=== PATIENT | female | born 1950 | race Caucasian/White ===

== ENCOUNTER 2017-07-07 17:32 | Inpatient (IN) | payer MEDICARE, OTHER ==
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
[2017-07-07] MEDS ORDERED: Ondansetron 4 MG/2 ML SDV IVPUSH ONE (18:17)
[2017-07-07] MEDS ORDERED: Sodium Chloride 0.9% 1,000 ML IV SCH ×2 (18:30→20:07)
[2017-07-07] MEDS ORDERED: Potassium Chloride 20 MEQ in Premix Bag 1 BAG IV ONE (18:39)
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
[2017-07-07] MEDS ORDERED: Ondansetron 4 MG/2 ML SDV IV PRN (20:07)
[2017-07-07] MEDS ORDERED: Sodium Chloride 0.9% 10 ML Syringe FLUSH PRN (20:07)
[2017-07-07] MEDS ORDERED: Morphine 2 MG/ML Syringe IVPUSH PRN (20:07)
[2017-07-07] MEDS ORDERED: Sodium Chloride 0.9% 100 ML with Pantoprazole 80 MG IV SCH ×2 (20:07)
[2017-07-07] MEDS ORDERED: Pantoprazole 40 MG Vial IVPUSH ONE (20:07)
[2017-07-07] MEDS: Pantoprazole 80 MG in Sodium Chloride 0.9% 100 ML IV SCH (21:26)
[2017-07-08] MEDS ORDERED: Sodium Chloride 0.9% 1,000 ML IV SCH (01:15)
[2017-07-08] MEDS: Pantoprazole 80 MG in Sodium Chloride 0.9% 100 ML IV SCH (06:02)
[2017-07-08] MEDS ORDERED: Propofol 200 MG/20 ML SDV ONE (08:59)
[2017-07-08] MEDS ORDERED: fentaNYL 100 MCG/2 ML SDV ONE (08:59)
[2017-07-08] MEDS ORDERED: Levothyroxine 50 MCG Tab PO SCH (09:00)
[2017-07-08] MEDS: Levothyroxine 50 MCG Tab PO SCH (10:37)
[2017-07-08] MEDS: Acetaminophen 325 MG Tab PO PRN ×2 (10:37→21:01)
--- NOTE | 2017-07-08 11:00 | PCM.PN ---
- General Info Date of Service: 07/08/17 Subjective Update: Monisha has been stable since admission, hemoglobin has remained in the range of 9 following hydration with no further evidence of active bleeding. EGD from this morning did show an area of redundant mucosa in the region of the junction with some erosions, old blood within the stomach, as well as some erosions in the antrum. Functional Status: Reports: Pain Controlled, Urinating - Review of Systems General: Reports: Weakness. Denies: Fever, Chills Pulmonary: Reports: No Symptoms Cardiovascular: Reports: No Symptoms Gastrointestinal: Denies: Abdominal Pain, Difficulty Swallowing, Hematochezia, Melena, Nausea, Vomiting - Patient Data Vitals - Most Recent: Last Vital Signs Temp 97.8 F 07/08/17 10:07 Pulse 68 07/08/17 10:48 Resp 18 07/08/17 10:48 BP 106/60 07/08/17 10:48 Pulse Ox 98 07/08/17 10:48 Weight - Most Recent: 173 lb 11.588 oz I&O - Last 24 Hours: Intake & Output 07/07/17 07/08/17 07/08/17 22:59 06:59 14:59 Intake Total 1174 Output Total 950 700 450 Balance -950 474 -450 Lab Results Last 24 Hours: Laboratory Results - last 24 hr 07/07/17 07/07/17 07/08/17 Range/Units 20:01 20:55 01:00 WBC (4.5-11.0) K/uL RBC (3.30-5.50) M/uL Hgb 9.4 L 8.7 L (12.0-15.0) g/dL Hct (36.0-48.0) % MCV (80-98) fL MCH (27-31) pg MCHC (32-36) % Plt Count (150-400) K/uL Neut % (Auto) (36-66) % Lymph % (Auto) (24-44) % [place] % (Auto) (2-6) % Eos % (Auto) (2-4) % Baso % (Auto) (0-1) % Sodium (140-148) mmol/L Potassium (3.6-5.2) mmol/L Chloride (100-108) mmol/L Carbon Dioxide (21-32) mmol/L Anion Gap (5.0-14.0) mmol/L BUN (7-18) mg/dL Creatinine (0.6-1.0) mg/dL Est Cr Clr Drug Dosing mL/min Estimated GFR (MDRD) (>60) Glucose (74-106) mg/dL Calcium (8.5-10.1) mg/dL Magnesium (1.8-2.4) mg/dL Urine Color Yellow Urine Appearance Clear Urine pH 6.5 (4.5-8.0) Ur Specific [place] 1.015 (1.008-1.030) Urine Protein Negative (NEGATIVE) mg/dL Urine Glucose (UA) Normal (NEGATIVE) mg/dL Urine Ketones 15 H (NEGATIVE) mg/dL Urine Occult Blood Negative (NEGATIVE) Urine Nitrite Negative (NEGATIVE) Urine Bilirubin Negative (NEGATIVE) Urine Urobilinogen Normal (NORMAL) mg/dL Ur Leukocyte Esterase Moderate (NEGATIVE) Urine RBC 0-5 (0-5) Urine WBC 0-5 (0-5) Ur Epithelial Cells Few Amorphous Sediment Not seen Urine Bacteria Not seen Urine Mucus Not seen 07/08/17 07/08/17 Range/Units 05:28 05:28 WBC 13.8 H (4.5-11.0) K/uL RBC 3.05 L (3.30-5.50) M/uL Hgb 9.4 L (12.0-15.0) g/dL Hct 28.5 L (36.0-48.0) % MCV 93 (80-98) fL MCH 31 (27-31) pg MCHC 33 (32-36) % Plt Count 329 (150-400) K/uL Neut % (Auto) 68 H (36-66) % Lymph % (Auto) 28 (24-44) % Drew % (Auto) 4 (2-6) % Eos % (Auto) 0 L (2-4) % Baso % (Auto) 0 (0-1) % Sodium 145 (140-148) mmol/L Potassium 3.8 (3.6-5.2) mmol/L Chloride 113 H (100-108) mmol/L Carbon Dioxide 23 (21-32) mmol/L Anion Gap 12.8 (5.0-14.0) mmol/L BUN 33 H (7-18) mg/dL Creatinine 0.8 (0.6-1.0) mg/dL Est Cr Clr Drug Dosing 53.23 mL/min Estimated GFR (MDRD) > 60 (>60) Glucose 92 (74-106) mg/dL Calcium 8.2 L (8.5-10.1) mg/dL Magnesium 1.8 (1.8-2.4) mg/dL Urine Color Urine Appearance Urine pH (4.5-8.0) Ur Specific [place] (1.008-1.030) Urine Protein (NEGATIVE) mg/dL Urine Glucose (UA) (NEGATIVE) mg/dL Urine Ketones (NEGATIVE) mg/dL Urine Occult Blood (NEGATIVE) Urine Nitrite (NEGATIVE) Urine Bilirubin (NEGATIVE) Urine Urobilinogen (NORMAL) mg/dL Ur Leukocyte Esterase (NEGATIVE) Urine RBC (0-5) Urine WBC (0-5) Ur Epithelial Cells Amorphous Sediment Urine Bacteria Urine Mucus Med Orders - Current: Current Medications Acetaminophen (Tylenol) 650 mg PO Q4H PRN PRN Reason: Pain (Mild 1-3)/fever Last Admin: 07/08/17 10:37 Dose: 650 mg Levothyroxine Sodium (Synthroid) 50 mcg PO ACBREAKFAST [facility] Last Admin: 07/08/17 10:37 Dose: 50 mcg Morphine Sulfate (Morphine) 2 mg IVPUSH Q2H PRN PRN Reason: Pain (severe 7-10) Ondansetron HCl (Zofran) 4 mg IV Q4H PRN PRN Reason: Nausea/Vomiting Pantoprazole Sodium (Protonix Iv) 40 mg IVPUSH Q12H [facility] Sodium Chloride (Saline Flush) 10 ml FLUSH ASDIRECTED PRN PRN Reason: Keep Vein Open Discontinued Medications Fentanyl (Sublimaze) Confirm Administered Dose 100 mcg .ROUTE .STK-MED ONE Stop: 07/08/17 09:00 Sodium Chloride (Normal Saline) 1,000 mls @ 999 mls/hr IV ASDIRECTED [facility] Last Admin: 07/07/17 18:21 Dose: 999 mls/hr Potassium Chloride 20 meq/ (Premix) 100 mls @ 50 mls/hr IV ONETIME ONE Stop: 07/07/17 20:38 Last Admin: 07/07/17 19:12 Dose: 50 mls/hr Sodium Chloride (Normal Saline) 1,000 mls @ 125 mls/hr IV ASDIRECTED [facility] Last Admin: 07/07/17 22:15 Dose: 125 mls/hr Pantoprazole Sodium 80 mg/ (Sodium Chloride) 100 mls @ 10 mls/hr IV ASDIRECTED [facility] Last Admin: 07/08/17 06:02 Dose: 10 mls/hr Sodium Chloride (Normal Saline) 1,000 mls @ 50 mls/hr IV ASDIRECTED [facility] Last Admin: 07/08/17 09:49 Dose: 50 mls/hr Lidocaine HCl (Xylocaine-Mpf 1%) Confirm Administered Dose 5 ml .ROUTE .STK-MED ONE Stop: 07/07/17 19:07 Last Admin: 07/07/17 19:13 Dose: 2 ml Ondansetron HCl (Zofran) 4 mg IVPUSH ONETIME ONE Stop: 07/07/17 18:18 Last Admin: 07/07/17 18:24 Dose: 4 mg Pantoprazole Sodium (Protonix Iv) 80 mg IVPUSH ONETIME ONE Stop: 07/07/17 20:08 Last Admin: 07/07/17 20:54 Dose: 80 mg Propofol (Diprivan 20 Ml) Confirm Administered Dose 200 mg .ROUTE .STK-MED ONE Stop: 07/08/17 09:00 - Exam Quality Assessment: DVT Prophylaxis General: Alert, Oriented, Cooperative, Mild Distress Lungs: Clear to Auscultation, Normal Respiratory Effort Cardiovascular: Regular Rate, Regular Rhythm, No Murmurs GI/Abdominal Exam: Soft, Non-Tender, No Organomegaly, No Distention Extremities: Non-Tender, No Pedal Edema Skin: Warm, Dry, Intact - Problem List Review Problem List Initiated/Reviewed/Updated: Yes - My Orders Last 24 Hours: My Active Orders 07/07/17 19:26 Resuscitation Status Routine 07/07/17 20:07 Patient Status [ADT] Routine Ambulate [RC] QID Cardiac Monitoring [RC] .As Directed Height and Weight [RC] DAILY Intake and Output [RC] QSHIFT Notify Provider Consults [RC] ASDIRECTED Notify Provider Vital Signs [RC] ASDIRECTED Oxygen Therapy [RC] PRN Peripheral IV Care [RC] . DIRECTED Up With Assistance [RC] ASDIRECTED Up to Chair [RC] QID Vital Signs [RC] Q1H Consult to Physician [CONS] Routine Acetaminophen [Tylenol] 650 mg PO Q4H PRN Morphine 2 mg IVPUSH Q2H PRN Ondansetron [Zofran] 4 mg IV Q4H PRN Sodium Chloride 0.9% [Saline Flush] 10 ml FLUSH ASDIRECTED PRN Peripheral IV Insertion Adult [OM.PC] Routine Sequential Compression Device [OM.PC] Per Unit Routine VTE Pharmacological Contraindications [AST] Per Unit Routine 07/08/17 07:30 Levothyroxine [Synthroid] 50 mcg PO ACBREAKFAST 07/08/17 10:50 HEMOGLOBIN [HEME] Stat Convert IV to Saline Lock [OM.PC] Routine 07/08/17 11:00 Pantoprazole [ProTONIX IV] 40 mg IVPUSH Q12H 07/09/17 05:00 BASIC METABOLIC PANEL,BMP [CHEM] Timed CBC WITH AUTO DIFF [HEME] Timed - Plan Plan:: ASSESSMENT AND PLAN UPPER GI BLEED-no further evidence of active bleeding since admission, hemoglobin has stabilized at 9. EGD showed redundant mucosa almost in the form of a large polyp at the EG junction with erosions, old blood in the stomach, and erosions in the antrum. -Protonix 40 mg IV every 12 hours -Start and maintain 2 large-bore IV sites -Clear liquid diet, advance as tolerated -Type and cross to hold 2 units of red blood cells -Surgical follow-up per Dr. Vogel -Serial hemoglobin levels ACUTE BLOOD LOSS ANEMIA -Management as above MAINTENANCE ISSUES -DVT prophylaxis; SCUDs, hold on anticoagulation because of acute GI bleed -GI prophylaxis; Protonix as above -Abernathy catheter; not indicated -Nutrition; nothing by mouth -Nicotine dependence; not required CODE STATUS-FULL CODE ADMISSION STATUS-patient will be admitted to inpatient status, expect at least a 2 night hospital stay for evaluation and management of problems as outlined above. At the time of this admission I do not reasonably expected evaluation and management of this problem will require more than a 96 hour hospital stay. DISPOSITION-anticipate discharge to home after the hospital stay. PRIMARY CARE PROVIDER-
[2017-07-08] MEDS: Pantoprazole 40 MG Vial IVPUSH SCH ×2 (11:39→22:49)
[2017-07-08] MEDS ORDERED: traMADol 50 MG Tab PO PRN (13:35)
[2017-07-09] MEDS: Acetaminophen 325 MG Tab PO PRN (07:21)
[2017-07-09] MEDS: Levothyroxine 50 MCG Tab PO SCH (07:34)
--- NOTE | 2017-07-09 09:38 | PCM.DCSUM1 ---
Discharge Summary - Discharge Data Discharge Date: 07/09/17 Discharge Disposition: Home, Self-Care 01 Condition: Fair - Discharge Diagnosis/Problem(s) (1) Acute blood loss anemia SNOMED Code(s): 687468983 ICD Code: D62 - ACUTE POSTHEMORRHAGIC ANEMIA Status: Acute Current Visit : Yes (2) Gastric erosion with bleeding Status: Acute Current Visit: Yes - Patient Summary/Data Consults: Consultations 07/07/17 20:07 Consult to Physician [CONS] Routine Consulting Provider: Matthew Vogel Call Completed to Consulting Physician: Yes Reason for Consult: Upper GI bleed Hospital Course: Monisha is a 66-year-old woman who was admitted through the emergency department with an upper GI bleed. She reports that she's had a previous history of lower GI bleeds, source not identified despite previous evaluations. She felt well until the morning of admission, when she noted a melenic-appearing stool, but felt well enough to work through the day. Late afternoon and early evening she was spending some time with friends and attempted to stand up but felt very lightheaded and fell back onto the couch. She did not pass out, but quickly thereafter did develop some nausea and retching. She is status post previous Berenice fundoplication so was unable to vomit. On evaluation in the emergency department she was found to be initially hypotensive, that improved following infusion of IV fluids. Hemoglobin was 10, no other significant laboratory abnormalities were identified. She denies any previous history of upper GI bleed or ulcer disease. Has not had recent symptoms of abdominal pain. On admission IV fluids were continued, she was given a bolus of Protonix at 80 mg followed by continuous infusion of Protonix at 8 mg per hour. Serial hemoglobin levels were obtained and did drop to the range of 9 following hydration. There was no further evidence of active bleeding throughout her hospital stay. Surgical consult was obtained with Dr. Vogel on the day after admission and an EGD was performed. She was noted to have redundant mucosa almost in the form of a large polyp at the EG junction. There were erosions on this area felt to be possible cause of recent bleeding. Old blood was noted in the stomach. Also found was very of erosions around the antrum biopsies were also obtained from this area. By the following morning she had been tolerating a soft diet and had been walking short distances without significant difficulty. She will be discharged home on oral Protonix 40 mg twice daily for 2 weeks, then once daily thereafter. She will continue to follow a soft low residue diet over the next 2 weeks. Activity will be as tolerated and she will be started on iron supplement twice daily. Follow-up appointment will be scheduled with Dr. Vogel within one week, CBC will be obtained at that time and he will review biopsy results with the patient during that appointment. She will return to the emergency room immediately if she notes any recurrent symptoms including melenic-appearing stools. - Patient Instructions Diet: GI Soft/Low Residue/Low Fiber Activity: As Tolerated Other/Special Instructions: Please schedule follow-up appointment with Dr. Vogel within one week, CBC to be obtained at the time of follow-up appointment. - Discharge Plan Prescriptions/Med Rec: Ferrous Gluconate 324 mg PO BID #60 tablet Pantoprazole Sodium [Protonix] 40 mg PO BID #30 tablet. Home Medications: Home Meds Dicyclomine [Bentyl] 10 mg PO TID PRN 10/28/15 [History] Fluticasone Propionate [Flonase] 1 inh INH DAILY PRN 10/28/15 [History] Hydrochlorothiazide 25 mg PO BID 10/28/15 [History] Hydrocortisone [Hydrocortisone 2.5% Crm] 1 applic TOP BID PRN 10/28/15 [History] Levothyroxine [Synthroid] 50 mcg PO DAILY 10/28/15 [History] Ferrous Gluconate 324 mg PO BID #60 tablet 07/09/17 [Rx] Pantoprazole Sodium [Protonix] 40 mg PO BID #30 tablet. 07/09/17 [Rx] Referrals: PCP,None [Primary Care Provider] - - Patient Data Vitals - Most Recent: Last Vital Signs Temp 98.6 F 07/09/17 08:00 Pulse 71 07/09/17 08:00 Resp 21 H 07/09/17 08:00 BP 101/63 07/09/17 08:00 Pulse Ox 93 L 07/09/17 08:00 Weight - Most Recent: 173 lb 11.588 oz I&O - Last 24 hours: Intake & Output 07/08/17 07/09/17 07/09/17 22:59 06:59 14:59 Intake Total 200 Output Total 500 Balance -300 Lab Results - Last 24 hrs: Laboratory Results - last 24 hr 07/08/17 07/08/17 07/08/17 Range/Units 11:00 16:16 22:08 WBC 9.2 10.0 (4.5-11.0) K/uL RBC 2.75 L 2.62 L (3.30-5.50) M/uL Hgb 8.8 L 8.4 L 8.1 L (12.0-15.0) g/dL Hct 26.2 L 25.2 L (36.0-48.0) % MCV 95 96 (80-98) fL MCH 31 31 (27-31) pg MCHC 32 32 (32-36) % Plt Count 300 269 (150-400) K/uL Neut % (Auto) (36-66) % Lymph % (Auto) (24-44) % [place] % (Auto) (2-6) % Eos % (Auto) (2-4) % Baso % (Auto) (0-1) % Sodium (140-148) mmol/L Potassium (3.6-5.2) mmol/L Chloride (100-108) mmol/L Carbon Dioxide (21-32) mmol/L Anion Gap (5.0-14.0) mmol/L BUN (7-18) mg/dL Creatinine (0.6-1.0) mg/dL Est Cr Clr Drug Dosing mL/min Estimated GFR (MDRD) (>60) Glucose (74-106) mg/dL Calcium (8.5-10.1) mg/dL 07/09/17 07/09/17 Range/Units 05:53 05:53 WBC 8.5 (4.5-11.0) K/uL RBC 2.77 L (3.30-5.50) M/uL Hgb 8.6 L (12.0-15.0) g/dL Hct 26.7 L (36.0-48.0) % MCV 96 (80-98) fL MCH 31 (27-31) pg MCHC 32 (32-36) % Plt Count 278 (150-400) K/uL Neut % (Auto) 50 (36-66) % Lymph % (Auto) 41 (24-44) % [place] % (Auto) 4 (2-6) % Eos % (Auto) 5 H (2-4) % Baso % (Auto) 1 (0-1) % Sodium 145 (140-148) mmol/L Potassium 4.3 (3.6-5.2) mmol/L Chloride 114 H (100-108) mmol/L Carbon Dioxide 25 (21-32) mmol/L Anion Gap 10.3 (5.0-14.0) mmol/L BUN 20 H (7-18) mg/dL Creatinine 0.8 (0.6-1.0) mg/dL Est Cr Clr Drug Dosing 53.23 mL/min Estimated GFR (MDRD) > 60 (>60) Glucose 101 (74-106) mg/dL Calcium 8.3 L (8.5-10.1) mg/dL Med Orders - Current: Current Medications Acetaminophen (Tylenol) 650 mg PO Q4H PRN PRN Reason: Pain (Mild 1-3)/fever Last Admin: 07/09/17 07:21 Dose: 650 mg Levothyroxine Sodium (Synthroid) 50 mcg PO ACBREAKFAST [facility] Last Admin: 07/09/17 07:34 Dose: 50 mcg Morphine Sulfate (Morphine) 2 mg IVPUSH Q2H PRN PRN Reason: Pain (severe 7-10) Ondansetron HCl (Zofran) 4 mg IV Q4H PRN PRN Reason: Nausea/Vomiting Pantoprazole Sodium (Protonix Iv) 40 mg IVPUSH Q12H [facility] Last Admin: 07/08/17 22:49 Dose: 40 mg Sodium Chloride (Saline Flush) 10 ml FLUSH ASDIRECTED PRN PRN Reason: Keep Vein Open Tramadol HCl (Ultram) 50 mg PO Q4H PRN PRN Reason: Pain Discontinued Medications Fentanyl (Sublimaze) Confirm Administered Dose 100 mcg .ROUTE .STK-MED ONE Stop: 07/08/17 09:00 Sodium Chloride (Normal Saline) 1,000 mls @ 999 mls/hr IV ASDIRECTED [facility] Last Admin: 07/07/17 18:21 Dose: 999 mls/hr Potassium Chloride 20 meq/ (Premix) 100 mls @ 50 mls/hr IV ONETIME ONE Stop: 07/07/17 20:38 Last Admin: 07/07/17 19:12 Dose: 50 mls/hr Sodium Chloride (Normal Saline) 1,000 mls @ 125 mls/hr IV ASDIRECTED [facility] Last Admin: 07/07/17 22:15 Dose: 125 mls/hr Pantoprazole Sodium 80 mg/ (Sodium Chloride) 100 mls @ 10 mls/hr IV ASDIRECTED [facility] Last Admin: 07/08/17 06:02 Dose: 10 mls/hr Sodium Chloride (Normal Saline) 1,000 mls @ 50 mls/hr IV ASDIRECTED [facility] Last Admin: 07/08/17 09:49 Dose: 50 mls/hr Lidocaine HCl (Xylocaine-Mpf 1%) Confirm Administered Dose 5 ml .ROUTE .STK-MED ONE Stop: 07/07/17 19:07 Last Admin: 07/07/17 19:13 Dose: 2 ml Ondansetron HCl (Zofran) 4 mg IVPUSH ONETIME ONE Stop: 07/07/17 18:18 Last Admin: 07/07/17 18:24 Dose: 4 mg Pantoprazole Sodium (Protonix Iv) 80 mg IVPUSH ONETIME ONE Stop: 07/07/17 20:08 Last Admin: 07/07/17 20:54 Dose: 80 mg Propofol (Diprivan 20 Ml) Confirm Administered Dose 200 mg .ROUTE .STK-MED ONE Stop: 07/08/17 09:00 *Q Meaningful Use (DIS) - VTE *Q VTE Criteria *Q: VTE Pharmacological Contraindications *Q: Active Hemorrhage - Stroke *Q Stroke Criteria *Q: - AMI *Q AMI Criteria *Q:
--- NOTE | 2017-07-10 09:19 | OR ---
DATE OF PROCEDURE: 07/08/2017 PREOPERATIVE DIAGNOSIS: Gastrointestinal hemorrhage. POSTOPERATIVE DIAGNOSES: 1. Proximal stomach mass. 2. Gastrointestinal hemorrhage. 3. Mild antral gastritis. PROCEDURE: Esophagogastroduodenoscopy with biopsy of proximal gastric mass, biopsy of antrum for CLOtest and for pathology to look for Helicobacter pylori. SURGEON: Matthew Vogel MD. ASSISTANTS: Present for observation, Dr. Whiteside, the attending; and Francis Cazares MS-3. ANESTHESIA: IV anesthesia with monitored anesthesia care. INDICATION: This 66-year-old white female was admitted by Dr. Whiteside last night after having melenic stools. Her hemoglobin fell as low as 8.7. She did receive blood transfusion. She has a history of Berenice fundoplication. A request was made for upper endoscopy. I counseled her for this and she gave her informed consent to proceed. DESCRIPTION OF PROCEDURE: The patient was placed in the left lateral decubitus position. IV anesthesia was administered by the Anesthesia Service. Time-out was held. The flexible video Olympus upper endoscope was passed through her mouth, down her esophagus, and into her stomach. The scope was easily passed through the pylorus into the duodenum , reaching its third portion. The scope was then slowly withdrawn, examining the mucosa throughout. The duodenal mucosa appeared unremarkable. The scope was brought up through the pylorus. There was some erythema in the antrum suggestive of mild antral gastritis. We obtained biopsies of this for CLOtest, sent for pathology to look for Helicobacter pylori. The scope was retroflexed, the proximal stomach showing a pedunculated mass, possibly a gastrointestinal stromal tumor. We did biopsy this mass. There was nothing actively bleeding at the present time. The scope was then brought up to the GE junction. This appeared unremarkable. It was then brought up through the unremarkable appearing esophagus and was removed. She tolerated the procedure well. Matthew Vogel MD /[id number] MTDD
== END 2017-07-09 11:13 | disposition home or self-care (01) | DRG 378 ==
LOC: JP.ED 17:32 → JP.ICU 19:24
PROVIDERS: ADMIT Hospitalist; ATTEND Hospitalist
PROC: 30233K1 Transfusion of Nonautologous Frozen Plasma into Peripheral Vein, Percutaneous Approach (ICD-10-PCS; principal; 2017-07-07)
PROC: 0DB68ZX Excision of Stomach, Via Natural or Artificial Opening Endoscopic, Diagnostic (ICD-10-PCS; 2017-07-08)
PROC: 0DB68ZX Excision of Stomach, Via Natural or Artificial Opening Endoscopic, Diagnostic (ICD-10-PCS; 2017-07-08)
DX: K92.2 Gastrointestinal hemorrhage, unspecified (principal); K25.4 Chronic or unspecified gastric ulcer with hemorrhage; D62 Acute posthemorrhagic anemia; R55 Syncope and collapse; R42 Dizziness and giddiness; R61 Generalized hyperhidrosis; I10 Essential (primary) hypertension; E03.9 Hypothyroidism, unspecified; K21.9 Gastro-esophageal reflux disease without esophagitis; J30.9 Allergic rhinitis, unspecified; Z88.8 Allergy status to other drugs, medicaments and biological substances
CPT/HCPCS: 36415; 36430; 80048; 80053; 81001; 82272; 82550; 83735; 84484; 85018; 85025; 85027; 86850; 86900; 86901; 86920; 86922; 87081; 87338; 93005; 96361; 96374; 99284-25; A9270-GY; C9113; J2405; J2704; J3010; J3480; J7030; J7040; P9017

== ENCOUNTER 2017-07-14 07:30 | Inpatient (IN) | payer MEDICARE, OTHER ==
[~2017-07-14 07:30] MED LIST: cefOXitin 2 GM Vial ONE
[2017-07-14] MEDS ORDERED: Acetaminophen 500 MG Tab PO ONE (09:30)
[2017-07-14] MEDS ORDERED: Gabapentin 300 MG Cap PO ONE (09:30)
[2017-07-14] MEDS ORDERED: Scopolamine 1.5 MG Transdermal Patch TOP SCH (09:30)
[2017-07-14] MEDS ORDERED: Celecoxib 200 MG Cap PO ONE (09:30)
[2017-07-14] MEDS ORDERED: cefOXitin 2 GM in Sodium Chloride 0.9% 50 ML IV ONE (10:00)
[2017-07-14] MEDS ORDERED: Dextrose 5%-Lactated Ringers 1,000 ML IV SCH (11:00)
[2017-07-14] MEDS ORDERED: fentaNYL 250 MCG/5 ML SDV ONE (11:56)
[2017-07-14] MEDS ORDERED: Propofol 200 MG/20 ML SDV ONE (11:57)
[2017-07-14] MEDS ORDERED: Ondansetron 4 MG/2 ML SDV ONE (11:57)
[2017-07-14] MEDS ORDERED: Neostigmine Methylsulfate 1 MG/ML 5 ML Syringe ONE (11:57)
[2017-07-14] MEDS ORDERED: Rocuronium 50 MG/5 ML Vial ONE (11:57)
[2017-07-14] MEDS ORDERED: Succinylcholine/Normal Saline 200 MG/10 ML Syringe ONE (11:57)
[2017-07-14] MEDS ORDERED: Dexamethasone 4 MG/ML SDV ONE (11:57)
[2017-07-14] MEDS ORDERED: Lidocaine 2% 100 MG/5 ML Syringe IVPUSH ONE (12:00)
[2017-07-14] MEDS ORDERED: Lidocaine 0.4%/D5W 2 GM/500 ML BAG IV SCH ×2 (12:00)
[2017-07-14] MEDS ORDERED: Ropivacaine 38 ML, Dexamethasone 8 MG, EPINEPHrine 0.4 MG, Sodium Chloride 0.9% 39.6 ML NERVRT SCH ×4 (12:00)
[2017-07-14] MEDS ORDERED: Ketamine 500 MG/5 ML MDV IV SCH (12:00)
[2017-07-14] MEDS ORDERED: Lactated Ringers 1,000 ML ONE (12:41)
[2017-07-14] MEDS ORDERED: Naloxone 0.4 MG/ML SDV IVPUSH PRN (14:49)
[2017-07-14] MEDS ORDERED: HYDROmorphone/Normal Saline 15 MG/30 ML PCA IV PRN (14:49)
[2017-07-14] MEDS ORDERED: Naloxone 0.4 MG/ML SDV IV PRN (15:01)
[2017-07-14] MEDS: Acetaminophen Soln 650 MG/20.3 ML UD Cup PO SCH ×2 (17:30→23:36)
[2017-07-14] MEDS: Insulin Aspart 100 Units/ML 3 ML Pen SUBCUT PRN (17:30)
[2017-07-14] MEDS: cefOXitin 2 GM in Sodium Chloride 0.9% 50 ML IV SCH ×2 (17:30→23:36)
[2017-07-14] MEDS: Pantoprazole 40 MG Vial IVPUSH SCH (17:30)
[2017-07-14] MEDS: SCOPOLAMINE PATCH CHECK TOP SCH (17:36)
[2017-07-14] MEDS ORDERED: diphenhydrAMINE 50 MG/ML SDV IVPUSH PRN (18:00)
[2017-07-14] MEDS ORDERED: Metoclopramide 10 MG/2 ML SDV IVPUSH PRN (18:00)
[2017-07-14] MEDS ORDERED: 50% Dextrose in Water 50 ML Syringe IVPUSH PRN (18:00)
[2017-07-14] MEDS ORDERED: MVI, Adult with Vitamin K 10 ML, Thiamine 200 MG, Chromium/Copper/Mang/Selen/Zn 1 ML in... IV SCH ×4 (18:00)
[2017-07-14] MEDS ORDERED: Glucagon,Human Recombinant 1 MG Vial IM PRN (18:00)
[2017-07-14] MEDS ORDERED: hydrOXYzine HCl 100 MG/2 ML SDV IM PRN (18:00)
[2017-07-14] MEDS ORDERED: Labetalol 20 MG/4 ML Syringe IVPUSH PRN (18:00)
[2017-07-14] MEDS: Gabapentin 250 MG/5 ML Solution ML 470 ML Bottle PO SCH (20:07)
[2017-07-14] MEDS: Heparin Sodium 5,000 Units/ML Vial SUBCUT SCH (20:08)
[2017-07-14] MEDS: Ondansetron 4 MG/2 ML SDV IVPUSH PRN (22:34)
[2017-07-14] MEDS: Dextrose 5%-Lactated Ringers 1,000 ML IV SCH (23:39)
[2017-07-15] MEDS ORDERED: Iohexol 647 MG/ML 50 ML SDV PO PRN (02:07)
[2017-07-15] MEDS: Insulin Aspart 100 Units/ML 3 ML Pen SUBCUT PRN (04:19)
[2017-07-15] MEDS: cefOXitin 2 GM in Sodium Chloride 0.9% 50 ML IV SCH ×3 (05:12→17:46)
[2017-07-15] MEDS: Acetaminophen Soln 650 MG/20.3 ML UD Cup PO SCH ×3 (05:12→17:46)
[2017-07-15] MEDS: Dextrose 5%-Lactated Ringers 1,000 ML IV SCH (06:18)
[2017-07-15] MEDS: Celecoxib 200 MG Cap PO SCH (07:51)
[2017-07-15] MEDS: Heparin Sodium 5,000 Units/ML Vial SUBCUT SCH ×2 (07:52→20:40)
--- NOTE | 2017-07-15 08:21 | PCM.SURGPN ---
- General Info Date of Service: 07/15/17 Date of Surgery/Procedure: 07/14/17 POD#: 1 Post-Op Diagnosis: S/P esophagogastrectomy with yeyo-en-y and esophagojejunostomy with removal of mucosal mass Admission Diagnosis/Problem: Gastrectomy (Removal of gastric mucosal mass ) Functional Status: Reports: Pain Controlled - Review of Systems General: Reports: No Symptoms HEENT: Reports: No Symptoms Pulmonary: Reports: No Symptoms Cardiovascular: Reports: No Symptoms Gastrointestinal: Reports: Abdominal Pain, Other (Complaining of some regurg and burpgin but no dirrhea, vomiting or nausea ) Genitourinary: Reports: No Symptoms Musculoskeletal: Reports: No Symptoms Skin: Reports: No Symptoms Neurological: Reports: No Symptoms Psychiatric: Reports: No Symptoms - Patient Data Vitals - Most Recent: Last Vital Signs Temp 37.2 C 07/15/17 07:38 Pulse 64 07/15/17 07:38 Resp 15 07/15/17 07:38 BP 125/71 07/15/17 07:38 Pulse Ox 95 07/15/17 07:50 Weight - Most Recent: 75.013 kg I&O - Last 24 Hours: Intake & Output 07/14/17 07/15/17 07/15/17 22:59 06:59 14:59 Intake Total 50 2528 Output Total 490 565 Balance -440 1963 Lab Results Last 24 Hrs: Laboratory Results - last 24 hr 07/14/17 07/14/17 07/14/17 Range/Units 11:00 11:00 11:00 WBC 8.4 (4.5-11.0) K/uL RBC 3.37 (3.30-5.50) M/uL Hgb 10.2 L (12.0-15.0) g/dL Hct 31.6 L (36.0-48.0) % MCV 94 (80-98) fL MCH 30 (27-31) pg MCHC 32 (32-36) % Plt Count 476 H (150-400) K/uL Sodium 140 (140-148) mmol/L Potassium 3.5 L (3.6-5.2) mmol/L Chloride 105 (100-108) mmol/L Carbon Dioxide 25 (21-32) mmol/L Anion Gap 13.5 (5.0-14.0) mmol/L BUN 15 (7-18) mg/dL Creatinine 0.9 (0.6-1.0) mg/dL Est Cr Clr Drug Dosing 47.32 mL/min Estimated GFR (MDRD) > 60 (>60) Glucose 109 H (74-106) mg/dL Calcium 9.1 (8.5-10.1) mg/dL Phosphorus 4.2 (2.5-4.9) mg/dL Magnesium 2.1 (1.8-2.4) mg/dL Total Bilirubin 0.4 (0.2-1.0) mg/dL AST 22 (15-37) U/L ALT 30 (12-78) U/L Alkaline Phosphatase 62 (46-116) U/L Total Protein 6.9 (6.4-8.2) g/dL Albumin 4.1 (3.4-5.0) g/dL Globulin 2.8 (2.3-3.5) g/dL Albumin/Globulin Ratio 1.5 (1.2-2.2) TSH, Ultra Sensitive 1.801 (0.358-3.740) uIU/mL Blood Type O POSITIVE Gel Antibody Screen Negative Med Orders - Current: Current Medications Acetaminophen (Tylenol) 650 mg PO Q6H [facility] Last Admin: 07/15/17 05:12 Dose: 650 mg Celecoxib (Celebrex) 200 mg PO DAILY@0800 [facility] Last Admin: 07/15/17 07:51 Dose: 200 mg Cyanocobalamin (Vitamin B12) 1,000 mcg IM ONETIME ONE Stop: 07/16/17 09:01 Dextrose/Water (Dextrose 50% In Water) 50 ml IVPUSH ONETIME PRN PRN Reason: ACCUCHECK LESS THAN 70 Diphenhydramine HCl (Benadryl) 25 - 50 mg IVPUSH Q4H PRN PRN Reason: ITCHING Gabapentin (Neurontin) 300 mg PO TID [facility] Last Admin: 07/14/17 20:07 Dose: 300 mg Glucagon (Glucagen) 1 mg IM ONETIME PRN PRN Reason: ACCUCHECK LESS THAN 70 Heparin Sodium (Porcine) (Heparin Sodium) 5,000 units SUBCUT Q12H [facility] Last Admin: 07/15/17 07:52 Dose: 5,000 units Hydromorphone HCl (Dilaudid Tail End Rider 15 Mg In Ns 30 Ml) 0 mg IV ASDIRECTED PRN; Protocol PRN Reason: Pain Hydroxyzine HCl (Vistaril) 75 - 100 mg IM Q4H PRN PRN Reason: pain Cefoxitin Sodium 2 gm/ Sodium (Chloride) 50 mls @ 100 mls/hr IV Q6H [facility] Stop: 07/15/17 18:29 Last Admin: 07/15/17 05:12 Dose: 100 mls/hr Dextrose/Lactated Ringer's (Dextrose 5%-Lactated Ringers) 1,000 mls @ 100 mls/ hr IV ASDIRECTED [facility] Multivitamins/Minerals 10 ml/Thiamine HCl 200 mg/ Chromium/Copper/Manganese/ Seleni/Zn 1 ml/ Dextrose/Lactated Ringer's 1,013 mls @ 100 mls/hr IV DAILY@ 1600 [facility] Insulin Aspart (Novolog) 0 unit SUBCUT Q6H PRN; Protocol PRN Reason: PER CORRECTIONAL DOSING Last Admin: 07/15/17 04:19 Dose: 5 unit Labetalol HCl (Normodyne) 5 - 15 mg IVPUSH Q1H PRN PRN Reason: SBP over 160 OR DBP over 95 Metoclopramide HCl (Reglan) 10 mg IVPUSH Q6H PRN PRN Reason: NAUSEA NOT CONTROL BY ZOFRAN Miscellaneous Information (Remove Patch) 1 ea TRDERM ONETIME ONE Stop: 07/16/17 10:01 Naloxone HCl (Narcan) 0.1 mg IV ASDIRECTED PRN PRN Reason: decreased respiratory rate Scopolamine Patch (Check) 1 each TOP DAILY [facility] Stop: 07/16/17 10:00 Last Admin: 07/14/17 17:36 Dose: 1 each Ondansetron HCl (Zofran) 4 mg IVPUSH Q4H PRN PRN Reason: Nausea/Vomiting Last Admin: 07/14/17 22:34 Dose: 4 mg Pantoprazole Sodium (Protonix Iv) 40 mg IVPUSH Q24H [facility] Last Admin: 07/14/17 17:30 Dose: 40 mg Scopolamine (Transderm-Scop) 1.5 mg TOP Q72H [facility] Stop: 07/16/17 10:00 Last Admin: 07/14/17 10:56 Dose: 1.5 mg Discontinued Medications Acetaminophen (Tylenol Extra Strength) 1,000 mg PO ONETIME ONE Stop: 07/14/17 09:31 Last Admin: 07/14/17 10:57 Dose: 1,000 mg Cefoxitin Sodium (Mefoxin) Confirm Administered Dose 2 gm .ROUTE .STK-MED ONE Stop: 07/14/17 07:09 Last Admin: 07/14/17 13:50 Dose: 2 gm Celecoxib (Celebrex) 200 mg PO ONETIME ONE Stop: 07/14/17 09:31 Last Admin: 07/14/17 10:57 Dose: 200 mg Ropivacaine 38 ml/Dexamethasone 8 mg/Epinephrine HCl 0.4 mg/ Sodium Chloride 39.6 ml 0 ml NERVRT ASDIRECTED [facility] Last Admin: 07/14/17 13:08 Dose: 2 syringe Dexamethasone (Dexamethasone) Confirm Administered Dose 4 mg .ROUTE .STK-MED ONE Stop: 07/14/17 11:58 Fentanyl (Sublimaze) Confirm Administered Dose 250 mcg .ROUTE .STK-MED ONE Stop: 07/14/17 11:57 Gabapentin (Neurontin) 300 mg PO ONETIME ONE Stop: 07/14/17 09:31 Last Admin: 07/14/17 10:57 Dose: 300 mg Glycopyrrolate () Confirm Administered Dose 1 mg .ROUTE .STK-MED ONE Stop: 07/14/17 11:58 Cefoxitin Sodium 2 gm/ Sodium (Chloride) 50 mls @ 100 mls/hr IV ONETIME ONE Stop: 07/14/17 10:29 Last Admin: 07/14/17 12:54 Dose: 100 mls/hr Lidocaine HCl/Dextrose (Lidocaine 2 Gm/D5w 500 Ml) 2 gm in 500 mls @ 30 mls/hr IV .[id number] PRN Reason: 2 MG/MIN Ketamine HCl 100 mg/ Sodium (Chloride) 100 mls @ 15 mls/hr IV ASDIRECTED [facility] PRN Reason: 5 MCG/KG/MIN Lidocaine HCl/Dextrose (Lidocaine 2 Gm/D5w 500 Ml) 2 gm in 500 mls @ 22.5 mls/ hr IV .[id number] PRN Reason: 1.5 MG/MIN Stop: 07/14/17 23:59 Last Admin: 07/14/17 17:21 Dose: Not Given Dextrose/Lactated Ringer's (Dextrose 5%-Lactated Ringers) 1,000 mls @ 100 mls/ hr IV ASDIRECTED [facility] Last Admin: 07/14/17 10:59 Dose: 100 mls/hr Lactated Ringer's (Ringers, Lactated) Confirm Administered Dose 1,000 mls @ as directed .ROUTE .STK-MED ONE Stop: 07/14/17 12:42 Dextrose/Lactated Ringer's (Dextrose 5%-Lactated Ringers) 1,000 mls @ 175 mls/ [facility] Last Admin: 07/15/17 06:18 Dose: 175 mls/hr Multivitamins/Minerals 10 ml/Thiamine HCl 200 mg/ Chromium/Copper/Manganese/ Seleni/Zn 1 ml/ Dextrose/Lactated Ringer's 1,013 mls @ 175 mls/hr IV DAILY@ 1600 [facility] Last Admin: 07/14/17 17:30 Dose: 175 mls/hr Iohexol (Omnipaque-300) 50 ml PO . DIRECTED PRN PRN Reason: RADIOLOGY EXAM Stop: 07/16/17 02:08 [facility] Lidocaine HCl (Xylocaine 2%) 90 mg IVPUSH ONETIME ONE Stop: 07/14/17 12:01 Last Admin: 07/14/17 17:22 Dose: Not Given Neostigmine Methylsulfate (Neostigmine) Confirm Administered Dose 5 mg .ROUTE .STK-MED ONE Stop: 07/14/17 11:58 Ondansetron HCl (Zofran) Confirm Administered Dose 4 mg .ROUTE .STK-MED ONE Stop: 07/14/17 11:58 Propofol (Diprivan 20 Ml) Confirm Administered Dose 200 mg .ROUTE .STK-MED ONE Stop: 07/14/17 11:58 Rocuronium [place] (Zemuron) Confirm Administered Dose 50 mg .ROUTE .STK-MED ONE Stop: 07/14/17 11:58 Succinylcholine Chloride (Succinylcholine In Ns Pf) Confirm Administered Dose 200 mg .ROUTE .STK-MED ONE Stop: 07/14/17 11:58 - Exam Wound/Incisions: Healing Well General: Alert, Oriented Neck: Supple Lungs: Clear to Auscultation, Normal Respiratory Effort Cardiovascular: Regular Rate, Regular Rhythm GI/Abdominal Exam: Soft, No Distention, Tender Skin: Warm, Dry, Intact Neurological: No New Focal Deficit Psy/Mental Status: Alert, Normal Affect, Normal Mood - Problem List Review Problem List Initiated/Reviewed/Updated: Yes - My Orders Last 24 Hours: Active Orders 24 hr Category Date Time Status Patient Status [ADT] Routine ADT 07/14/17 16:20 Active Ambulate [RC] ASDIRECTED Care 07/14/17 16:58 Active Cardiac Monitoring Discontinue [RC] Click to Edit Care 07/15/17 07:35 Active Cardiac Monitoring Discontinue [RC] Click to Edit Care 07/15/17 09:00 Active Cardiac Monitoring [RC] .As Directed Care 07/14/17 16:58 Active Communication Order [RC] ASDIRECTED Care 07/16/17 04:00 Active Communication Order [RC] Q4H Care 07/14/17 16:58 Active Communication Order [RC] ROUTINE Care 07/14/17 16:58 Active Communication Order [RC] ROUTINE Care 07/15/17 07:37 Active Communication Order [RC] STAT Care 07/14/17 14:49 Active Drain Management [RC] ASDIRECTED Care 07/14/17 16:58 Active Head of Bed Elevation [RC] CONTINUOUS Care 07/14/17 16:58 Active IS (RT) [RT Incentive Spirometry] [RC] ASDIRECTED Care 07/14/17 09:30 Active Insert Urinary Catheter [OM.PC] Per Unit Routine Care 07/14/17 16:58 Ordered Insert Urinary Catheter [OM.PC] Per Unit Routine Care 07/14/17 16:58 Ordered Intake and Output [RC] ASDIRECTED Care 07/14/17 16:58 Active Notify Provider Intake and Out [RC] ASDIRECTED Care 07/14/17 16:58 Active Notify Provider [RC] PRN Care 07/14/17 14:49 Active Oxygen Therapy [RC] ASDIRECTED Care 07/14/17 16:58 Active POC Glucose [Blood Glucose Check, Bedside] [RC] Q6HR Care 07/14/17 22:00 Active Pneumonia Education [RC] UPON Care 07/14/17 16:58 Active Pulse Oximetry [RC] CONTINUOUS Care 07/14/17 14:49 Active RT BiPAP/CPAP [RC] ASDIRECTED Care 07/14/17 16:58 Active RT Incentive Spirometry [RC] Q1HWA Care 07/14/17 16:58 Active Turn, Cough, Deep Breathe [RC] Q1HWA Care 07/14/17 16:58 Active Up to Chair [RC] TIDMEALS Care 07/14/17 16:58 Active Vital Signs [RC] PER UNIT ROUTINE Care 07/14/17 16:58 Active Consult to Bariatric Services [CONS] Routine Cons 07/14/17 16:58 Active Consult to Drainage Design Coordinator [CONS] Routine Cons 07/17/17 09:00 Active Respiratory Care Assess and Treatment [CONS] Routine Cons 07/14/17 16:58 Active Bariatric Diet [DIET] Diet 07/14/17 Dinner Active UGI wo KUB [CR] Timed Exams 07/15/17 04:00 Ordered GLUCOSE POC LAB TO COLLECT [POC] Q6H Lab 07/15/17 10:00 Ordered GLUCOSE POC LAB TO COLLECT [POC] Q6H Lab 07/15/17 16:00 Ordered GLUCOSE POC LAB TO COLLECT [POC] Q6H Lab 07/15/17 22:00 Ordered GLUCOSE POC LAB TO COLLECT [POC] Q6H Lab 07/16/17 04:00 Ordered GLUCOSE POC LAB TO COLLECT [POC] Q6H Lab 07/16/17 10:00 Ordered GLUCOSE POC LAB TO COLLECT [POC] Q6H Lab 07/16/17 16:00 Ordered GLUCOSE POC LAB TO COLLECT [POC] Q6H Lab 07/16/17 22:00 Ordered GLUCOSE POC LAB TO COLLECT [POC] Q6H Lab 07/17/17 04:00 Ordered GLUCOSE POC LAB TO COLLECT [POC] Q6H Lab 07/17/17 10:00 Ordered GLUCOSE POC LAB TO COLLECT [POC] Q6H Lab 07/17/17 16:00 Ordered GLUCOSE POC LAB TO COLLECT [POC] Q6H Lab 07/17/17 22:00 Ordered GLUCOSE POC LAB TO COLLECT [POC] Q6H Lab 07/18/17 04:00 Ordered GLUCOSE POC LAB TO COLLECT [POC] Q6H Lab 07/18/17 10:00 Ordered GLUCOSE POC LAB TO COLLECT [POC] Q6H Lab 07/18/17 16:00 Ordered GLUCOSE POC LAB TO COLLECT [POC] Q6H Lab 07/18/17 22:00 Ordered GLYCOSYLATED HEMOGLOBIN,HGBA1C [CHEM] Routine Lab 07/15/17 07:35 Ordered Acetaminophen [Tylenol] Med 07/14/17 18:00 Active 650 mg PO Q6H Celecoxib [CeleBREX] Med 07/15/17 08:00 Active 200 mg PO DAILY@0800 Cyanocobalamin (Vitamin B12) [Vitamin B12] Med 07/16/17 09:00 Once 1,000 mcg IM ONETIME ONE Dextrose 5%-Lactated Ringers 1,000 ml Med 07/15/17 07:45 Active IV ASDIRECTED Dextrose 50% in Water Med 07/14/17 18:00 Active 50 ml IVPUSH ONETIME PRN Gabapentin [Neurontin] Med 07/14/17 21:00 Active 300 mg PO TID Glucagon,Human Recombinant [GlucaGen] Med 07/14/17 18:00 Active 1 mg IM ONETIME PRN HYDROmorphone/Normal Saline [Dilaudid PANMAN 15 MG in NS Med 07/14/17 14:49 Active 30 ML] See Protocol IV ASDIRECTED PRN Heparin Sodium Med 07/14/17 20:00 Active 5,000 units SUBCUT Q12H Insulin Aspart [NovoLOG] Med 07/14/17 18:00 Active 0 unit SUBCUT Q6H PRN Labetalol [Normodyne] Med 07/14/17 18:00 Active 5 - 15 mg IVPUSH Q1H PRN MVI, Adult with Vitamin K [Infuvite Adult] 10 ml Med 07/15/17 16:00 Active Thiamine [Vitamin B-1] 200 mg Chromium/Copper/Dave/Selen/Zn [Multitrace-5 Concentrate ] 1 ml Dextrose 5%-Lactated Ringers 1,000 ml IV DAILY@1600 Metoclopramide [Reglan] Med 07/14/17 18:00 Active 10 mg IVPUSH Q6H PRN Naloxone [Narcan] Med 07/14/17 15:01 Active 0.1 mg IV ASDIRECTED PRN Non-Formulary Medication [NF Drug] Med 07/14/17 15:00 Active 1 each TOP DAILY Ondansetron [Zofran] Med 07/14/17 18:00 Active 4 mg IVPUSH Q4H PRN Pantoprazole [ProTONIX IV] Med 07/14/17 18:00 Active 40 mg IVPUSH Q24H Remove Patch Med 07/16/17 10:00 Once 1 ea TRDERM ONETIME ONE Scopolamine [Transderm-Scop] Med 07/14/17 09:30 Active 1.5 mg TOP Q72H cefOXitin [Mefoxin] 2 gm Med 07/14/17 18:00 Active Sodium Chloride 0.9% [Normal Saline] 50 ml IV Q6H diphenhydrAMINE [Benadryl] Med 07/14/17 18:00 Active 25 - 50 mg IVPUSH Q4H PRN hydrOXYzine HCl [Vistaril] Med 07/14/17 18:00 Active 75 - 100 mg IM Q4H PRN Abdominal Binder [OM.PC] Routine Oth 07/14/17 16:58 Ordered Medication Discontinuation Instructions [OM.PC] Stat Oth 07/14/17 14:49 Ordered Oral Care [OM.PC] BID Oth 07/14/17 17:00 Ordered Oral Care [OM.PC] BID Oth 07/15/17 17:00 Ordered PT Screening [OM.PC] Routine Oth 07/14/17 16:58 Active SCD [Sequential Compression Device] [OM.PC] Routine Oth 07/14/17 09:30 Ordered Specialty Bed [OM.PC] Routine Oth 07/14/17 16:58 Ordered Resuscitation Status Routine Resus Stat 07/14/17 16:58 Ordered Medication Orders Acetaminophen (Tylenol) 650 mg PO Q6H [facility] Last Admin: 07/15/17 05:12 Dose: 650 mg Admin: 07/14/17 23:36 Dose: 650 mg Admin: 07/14/17 17:30 Dose: 650 mg Celecoxib (Celebrex) 200 mg PO DAILY@0800 [facility] Last Admin: 07/15/17 07:51 Dose: 200 mg Cyanocobalamin (Vitamin B12) 1,000 mcg IM ONETIME ONE Stop: 07/16/17 09:01 Dextrose/Water (Dextrose 50% In Water) 50 ml IVPUSH ONETIME PRN PRN Reason: ACCUCHECK LESS THAN 70 Diphenhydramine HCl (Benadryl) 25 - 50 mg IVPUSH Q4H PRN PRN Reason: ITCHING Gabapentin (Neurontin) 300 mg PO TID [facility] Last Admin: 07/14/17 20:07 Dose: 300 mg Glucagon (Glucagen) 1 mg IM ONETIME PRN PRN Reason: ACCUCHECK LESS THAN 70 Heparin Sodium (Porcine) (Heparin Sodium) 5,000 units SUBCUT Q12H [facility] Last Admin: 07/15/17 07:52 Dose: 5,000 units Admin: 07/14/17 20:08 Dose: 5,000 units Hydromorphone HCl (Dilaudid Tail End Rider 15 Mg In Ns 30 Ml) 0 mg IV ASDIRECTED PRN; Protocol PRN Reason: Pain Hydroxyzine HCl (Vistaril) 75 - 100 mg IM Q4H PRN PRN Reason: pain Cefoxitin Sodium 2 gm/ Sodium (Chloride) 50 mls @ 100 mls/hr IV Q6H [facility] Stop: 07/15/17 18:29 Last Admin: 07/15/17 05:12 Dose: 100 mls/hr Admin: 07/14/17 23:36 Dose: 100 mls/hr Admin: 07/14/17 17:30 Dose: 100 mls/hr Dextrose/Lactated Ringer's (Dextrose 5%-Lactated Ringers) 1,000 mls @ 100 mls/ hr IV ASDIRECTED [facility] Multivitamins/Minerals 10 ml/Thiamine HCl 200 mg/ Chromium/Copper/Manganese/ Seleni/Zn 1 ml/ Dextrose/Lactated Ringer's 1,013 mls @ 100 mls/hr IV DAILY@ 1600 [facility] Insulin Aspart (Novolog) 0 unit SUBCUT Q6H PRN; Protocol PRN Reason: PER CORRECTIONAL DOSING Last Admin: 07/15/17 04:19 Dose: 5 unit Admin: 07/14/17 17:30 Dose: 5 unit Labetalol HCl (Normodyne) 5 - 15 mg IVPUSH Q1H PRN PRN Reason: SBP over 160 OR DBP over 95 Metoclopramide HCl (Reglan) 10 mg IVPUSH Q6H PRN PRN Reason: NAUSEA NOT CONTROL BY ZOFRAN Miscellaneous Information (Remove Patch) 1 ea TRDERM ONETIME ONE Stop: 07/16/17 10:01 Naloxone HCl (Narcan) 0.1 mg IV ASDIRECTED PRN PRN Reason: decreased respiratory rate Scopolamine Patch (Check) 1 each TOP DAILY [facility] Stop: 07/16/17 10:00 Last Admin: 07/14/17 17:36 Dose: 1 each Ondansetron HCl (Zofran) 4 mg IVPUSH Q4H PRN PRN Reason: Nausea/Vomiting Last Admin: 02/16/18 22:34 Dose: 4 mg Pantoprazole Sodium (Protonix Iv) 40 mg IVPUSH Q24H [facility] Last Admin: 07/14/17 17:30 Dose: 40 mg Scopolamine (Transderm-Scop) 1.5 mg TOP Q72H [facility] Stop: 07/16/17 10:00 Last Admin: 07/14/17 10:56 Dose: 1.5 mg - Plan Plan (Free Text/Narrative):: Kendy Omer is a 66 year old female with a past medical history of a gastric mucosal mass that was found on EGD after some hematemesis who is POD #1 from a esophagogastrectomy, esophagojejunostomy with yyeo-en-y and removal of her mass. Last night the patient was slightly lethargic and the lidocaine drip was stopped. This morning she is still lethargic but much less so. She is doing well with some mild epigastric tenderness, burping and what she describes as regurgitation of her sips of water. She was also found to be weak this morning and thus her Upper GI study was no performed yet. The patient had no further concerns or questions at this time. # Epigastric abdominal pain- most likely related to her surgery - PANMAN is ordered and if the patient needs will give - Continue Mefoxin - Tylenol PRN - Flexeril PRN # Paralytic ileus- there were no bowel sounds appreciated on exam and the patient denied any gas or stool passage. Most likely due to post operative ileus , which should resolve today or tomorrow. This is exacerbated by her limited step 1 diet due to the gastric bypass because of lack of input. An Upper Gi study will be done today. Will continue to monitor the patient for increased abdominal pain, fever, intractable vomiting and changes in her progression. E.N.E.R.G.Y protocol - lidocaine today - D/c scopolomine patch today - Continue Celebrex 200 mg - Continue gabapentin 300 TID - Continue IV Protonix 40mg Q24hrs - 1000 mcg B12 - Contiue Infuvite - Dietary consulted, thank you! Chronic issues # Hypertension - Continue home labatalol # Diabetes- The patient did have some high sugars last evening. - Continue SSI - Get Hgb A1c VTE PPX- 5000 units heparin Q12 hours. Pt advised to continue moving around. Pneumonia PPX- Pt advised to walk around and use incentive spirometry 10 times per hour Code status: full Fluids: 100 ml/hr Diet: step 1 diet Nausea: Zofran Q4hr or [place] Q6hr PRN Dispo:Patient will most likely remain in the hospital for the next day or two.
[2017-07-15] MEDS: SCOPOLAMINE PATCH CHECK TOP SCH (09:12)
[2017-07-15] MEDS: Gabapentin 250 MG/5 ML Solution ML 470 ML Bottle PO SCH ×3 (09:12→20:41)
[2017-07-15] MEDS: MVI, Adult with Vitamin K 10 ML, Thiamine 200 MG, Chromium/Copper/Mang/Selen/Zn 1 ML in... IV SCH ×4 (15:55)
[2017-07-15] MEDS: Pantoprazole 40 MG Vial IVPUSH SCH (17:46)
[2017-07-15] MEDS: Ondansetron 4 MG/2 ML SDV IVPUSH PRN (20:41)
[2017-07-16] MEDS: Dextrose 5%-Lactated Ringers 1,000 ML IV SCH (01:04)
[2017-07-16] MEDS: Acetaminophen Soln 650 MG/20.3 ML UD Cup PO SCH ×5 (01:04→23:28)
[2017-07-16] MEDS: Heparin Sodium 5,000 Units/ML Vial SUBCUT SCH ×2 (08:08→19:45)
[2017-07-16] MEDS: Celecoxib 200 MG Cap PO SCH (08:08)
[2017-07-16] MEDS: SCOPOLAMINE PATCH CHECK TOP SCH (08:12)
[2017-07-16] MEDS ORDERED: Cyanocobalamin (Vitamin B12) 1,000 MCG/ML SDV IM ONE (09:00)
[2017-07-16] MEDS: Gabapentin 250 MG/5 ML Solution ML 470 ML Bottle PO SCH ×3 (09:23→20:56)
[2017-07-16] MEDS: MVI, Adult with Vitamin K 10 ML, Thiamine 200 MG, Chromium/Copper/Mang/Selen/Zn 1 ML in... IV SCH ×8 (13:54→15:32)
[2017-07-16] MEDS: Pantoprazole 40 MG Delayed-Release Granules 1 Packet PO SCH (15:42)
[2017-07-17] MEDS: Dextrose 5%-Lactated Ringers 1,000 ML IV SCH (00:45)
[2017-07-17] MEDS: Acetaminophen Soln 650 MG/20.3 ML UD Cup PO SCH ×3 (05:38→17:14)
[2017-07-17] MEDS ORDERED: Magnesium Hydroxide 400 MG/5 ML Susp 30 ML Cup PO ONE (08:30)
[2017-07-17] MEDS: Heparin Sodium 5,000 Units/ML Vial SUBCUT SCH ×2 (08:50→21:20)
[2017-07-17] MEDS: Celecoxib 200 MG Cap PO SCH (08:50)
[2017-07-17] MEDS ORDERED: Bisacodyl 5 MG Tab PO ONE (09:30)
[2017-07-17] MEDS: Gabapentin 250 MG/5 ML Solution ML 470 ML Bottle PO SCH ×3 (09:55→21:32)
--- NOTE | 2017-07-17 11:55 | CR ---
Limited upper GI The patient is status post Estephania-en-Y gastric bypass. There are left upper quadrant drains in place. T here is no extravasation of contrast. The gastric pouch empties readily into a nondilated Estephania limb. No complications are evident. Impression: 1. Status post Estephania-en-Y gastric bypass without evidence for complication.
--- NOTE | 2017-07-17 13:07 | PN ---
DATE OF SERVICE: 07/16/2017 The patient has been afebrile with stable vital signs. Her upper GI x-ray looked good yesterday and oral intake was only around 350 mL, I think that will improve today. We will go up to step-2 diet without solids. Her blood sugars and hemoglobin A1c have been good, so we will discontinue the Accu-Cheks and otherwise maximize activity and work with pulmonary toilet. She may be ready for home tomorrow depending on the adequacy of oral intake. Edison Dai MD /[id number]
[2017-07-17] MEDS: Pantoprazole 40 MG Delayed-Release Granules 1 Packet PO SCH (17:14)
[2017-07-17] MEDS ORDERED: Ondansetron 4 MG Tab.DIS PO PRN (18:46)
--- NOTE | 2017-07-17 18:47 | PN ---
DATE OF SERVICE: 07/17/2017 SUBJECTIVE: Monisha is postop day 3. Her pain has been controlled. No more confusion. Oral intake 890. CHARLA drain put out 120 mL. She consumed for breakfast, lunch, and dinner of 100%, 75%, and 60%. Snack percent consumed 100%. Up ambulating. Vital signs have been stable. She has not had a bowel movement yet. OBJECTIVE: GENERAL: Monisha is a 66-year-old female. Alert, orientated. VITAL SIGNS: TPR 96.7, 64, 18, blood pressure 124/70. HEENT: Negative. NECK: Supple. HEART: Regular rate and rhythm. LUNGS: Clear. ABDOMEN: Dressings dry and intact. Abdominal binder is on. EXTREMITIES: Without peripheral edema. ASSESSMENT: Laparoscopic esophagogastrectomy with Estephania-en-Y and esophagojejunostomy with removal of mucosa mass. Date of surgery, 07/14/2017, Edison Dai MD. PLAN: 1. Milk of magnesia 30 mL now. 2. Dulcolax 2 tabs 1 hour after milk of magnesia, then start with a Dulcolax 2 tabs b.i.d. until bowel movement. 3. Saline lock IV. 4. We will evaluate p.r.n. or in a.m. Ashly Thompson PA-C /[id number]
[2017-07-17] MEDS: Bisacodyl 5 MG Tab PO SCH (21:26)
[2017-07-18] MEDS: Acetaminophen Soln 650 MG/20.3 ML UD Cup PO SCH ×2 (00:57→06:17)
[2017-07-18] MEDS: Celecoxib 200 MG Cap PO SCH (07:59)
[2017-07-18] MEDS: Heparin Sodium 5,000 Units/ML Vial SUBCUT SCH (07:59)
[2017-07-18] MEDS: Bisacodyl 5 MG Tab PO SCH (08:52)
[2017-07-18] MEDS: Gabapentin 250 MG/5 ML Solution ML 470 ML Bottle PO SCH (08:52)
--- NOTE | 2017-07-18 16:09 | DISCH ---
FINAL DIAGNOSES: 1. Submucosal mass, proximal stomach (final pathology pending). 2. Paraesophageal diaphragmatic hernia. 3. History of gastroesophageal reflux disease. 4. History of depression and anxiety. 5. Treated hypothyroidism. OPERATIVE PROCEDURES: This was done on 07/14/2017; diagnostic laparoscopy with lysis of adhesions and; 1. Esophagogastrectomy with Estephania-en-Y esophagojejunostomy. 2. Repair of recurrent paraesophageal diaphragmatic hernia. HOSPITAL COURSE: This 66-year-old female is presenting with some GI bleeding recently. Upper GI endoscopy showed a submucosal mass, just below her previous fundoplication. Biopsies of this were, as expected, negative. She was having some bleeding from erosions over this. A CT scan was obtained and did show an area of increased density in the area of the mass, i.e., this was not a lipoma by CT criteria, but something with somewhat denser tissue than the surrounding gastric wall. On the date of surgery, the patient underwent esophagogastrectomy with Estephania-en-Y gastrojejunostomy. The recurrent paraesophageal hernia was also repaired. Postoperatively, she had no major problems. Bowel function was a little bit sluggish getting along. Presently, she is tolerating step-2 diet and will continue that until the first appointment. The first appointment will be with Ashly Thompson at [facility] on 07/26/2017 with Dietary to see the patient at that time as well. DISCHARGE MEDICATIONS: Medications are as per the medication discharge sheet.
--- NOTE | 2017-07-24 12:59 | OR ---
DATE OF PROCEDURE: 07/14/2017 PREOPERATIVE DIAGNOSIS: Proximal gastric submucosal mass. POSTOPERATIVE DIAGNOSES: 1. Proximal gastric submucosal mass. 2. Recurrent paraesophageal diaphragmatic hernia. OPERATIVE PROCEDURES: Diagnostic laparoscopy with lysis of adhesions and: 1. Esophagogastrectomy with Estephania-en-Y esophagojejunostomy ([id number]). 2. Repair of recurrent paraesophageal diaphragmatic hernia (80348). ANESTHESIA: General. ASSISTANTS: Ashly Thompson PA-C, and LAUREN Patel3. INDICATION FOR PROCEDURE: This is a 66-year-old female presenting with some GI bleeding the last week. This showed what appeared to be a large submucosal mass in the proximal stomach. This was located just below previous Berenice fundoplication. CT scan showed this mass to be not fat density, in fact, appeared to be somewhat denser than the adjacent gastric wall. Given this, this is to be treated as a potentially neoplastic submucosal mass. The plan will be to proceed with esophagogastrectomy which can likely be accomplished laparoscopically. Estephania-en-Y esophagojejunostomy will be planned. Potential risks of the procedure including bleeding, infection, leaks from various GI tract closures, possible recurrence of the proximal tumor over time as well as possibility of cardiopulmonary, septic, or hemorrhagic complications leading to were all discussed, and the patient wishes to proceed. DETAILS OF PROCEDURE: The patient was taken to the operating room and placed in a supine position. After general endotracheal anesthesia was induced, the patient was converted to a lithotomy position. Abernathy catheter was inserted, which was removed at the conclusion of the procedure, and the abdomen was prepped and draped. At 15 cm inferior and 5 cm left of xiphoid process, a transverse incision was made, and the peritoneal cavity entered under direct vision with an Optiview trocar and inflated to 15 mmHg pressure with CO2. Laparoscope was then reinserted. No underlying trocar insertion site injuries were seen. Following this, 5 additional trocars were placed across the upper and mid abdomen and general exploration was undertaken. The patient was noted to have some adhesions in the previous Berenice fundoplication. These were taken down with Harmonic scalpel and this allowed dissection of the liver anterior to the area of the dissection. At this point, the finger dissection above the fundoplication in the distal esophagus was established with a combination of Harmonic scalpel and blunt dissection. Once this was completed from the right toward the left side, the proximal esophagus was divided with BERNARDO black loads. Following this then, the lesser curvature of the stomach was entered just above the incisura angularis. It was notable that there was no lymphadenopathy present and apart from possible lymphoma and early potential tumors in this location, which will be of submucosal in nature, will likely be associated with a lymph node disease. Given this then, the plane of dissection continued directly along the side of the stomach, preserving the left gastric vessel. This continued up to the point of division of the esophagus medially. The dissection began with the stomach and then continued out laterally towards the left and the stomach divided with a series of BERNARDO black and purple loads. This was continued up along the area of the uppermost fundus. The short gastric vessels had previously been divided as a result of the Berenice fundoplication. At that point, the specimen consisting of esophagogastrectomy was completely freed up. Both staple lines appeared to be intact. The patient was noted to have a recurrent paraesophageal diaphragmatic hernia with prolapse of some perigastric fat posterior to the defect. This was reduced and the peritoneum reflected downward and excised, and likewise reflected down. The diaphragmatic hernia was then closed with series of 0 Ethibond seromuscular stitch reinforced with PTFE pledgets. At this point, the small bowel was identified at the ligament of Treitz. The small bowel was then traced out 50 cm distal to that point, where it was divided transversely with a BERNARDO stapler. The small bowel was then traced out an additional 125 cm, where the [id number] enteroenterostomy was accomplished with internal firing of the Endo-BERNARDO 60-mm stapler, common opening was then closed transversely with the same stapler and angles anastomosed, and mesenteric defect approximated with some 0 Ethibond stitch along with fibrin sealant. The divided end of the Estephania limb was then easily brought up to the divided esophagus without tension through an antecolic and antegastric approach. The anvil of a 25-mm EEA stapler was attached to a Madison sump type tube. The latter was brought down through the mouth and taken out through a small opening in the divided end of the esophagus, allowing the anvil likewise to be pulled down to within the end of the esophagus. Then, the Estephania limb was then opened and main body of the EEA stapler passed several centimeters in the lumen of the small bowel, brought up the anvil and united with it, thus creating the esophagojejunostomy. Upon removal of the stapler, double donuts of mucosa were noted within it, and the small bowel was closed off with a vascular staple line. A leak test was accomplished at the esophagojejunostomy with injection of 120 mL of air in the gastric pouch through an orogastric tube while that area was submerged in cefoxitin- containing saline solution. No leaks were identified. One Peter-Munoz drain was then placed adjacent to the esophagojejunostomy and taken out of subcostal trocar sites laterally on the left side and, at that point, trocars were removed, and the peritoneal cavity deflated. The incision was closed with 4-0 Vicryl skin stitch, which was also used to fix the drain. The patient was taken to the recovery room in a satisfactory condition. There were no evident complications. Physician human resources executive assistant, Ashly Thompson, played an essential role in assisting in this case, helping to position the patient, retract structures as needed, as well as suturing and cutting sutures when indicated. Her presence improved patient safety and decreased the operative time. Edison Dai MD /[id number]
== END 2017-07-18 10:40 | disposition home or self-care (01) | DRG 327 ==
LOC: EDSTATUS 07:30 → JP.SDSSCHI 10:29 → JP.SDS 10:29 → JP.2SS 16:20
PROVIDERS: ADMIT Surgery; ATTEND Surgery
PROC: 0D154ZA Bypass Esophagus to Jejunum, Percutaneous Endoscopic Approach (ICD-10-PCS; principal; 2017-07-14)
PROC: 0DB44ZZ Excision of Esophagogastric Junction, Percutaneous Endoscopic Approach (ICD-10-PCS; 2017-07-14)
PROC: 0BQT4ZZ Repair Diaphragm, Percutaneous Endoscopic Approach (ICD-10-PCS; 2017-07-14)
PROC: 0DB64ZZ Excision of Stomach, Percutaneous Endoscopic Approach (ICD-10-PCS; 2017-07-14)
DX: K92.2 Gastrointestinal hemorrhage, unspecified (principal); K56.7 Ileus, unspecified; K44.9 Diaphragmatic hernia without obstruction or gangrene; Z87.19 Personal history of other diseases of the digestive system; I10 Essential (primary) hypertension; E03.9 Hypothyroidism, unspecified; J30.9 Allergic rhinitis, unspecified; E11.9 Type 2 diabetes mellitus without complications; F32.9 Major depressive disorder, single episode, unspecified; F41.9 Anxiety disorder, unspecified; Z98.84 Bariatric surgery status; Z98.0 Intestinal bypass and anastomosis status; Z88.8 Allergy status to other drugs, medicaments and biological substances; K31.9 Disease of stomach and duodenum, unspecified
CPT/HCPCS: 36415; 74240; 74240-26; 80053; 82962; 83036; 83735; 84100; 84443; 85027; 86850; 86900; 86901; 88305; 88307; 94762; A9270-GY; C9113; J0171; J0694; J1100; J1644; J2001; J2405; J2704; J2795; J3010; J3410; J3411; J3420; J7030; J7042; J7050; J7120; Q9967

== ENCOUNTER 2020-04-30 07:39 | Day surgery (SDC) | payer MEDICARE, OTHER ==
[~2020-04-30 07:39] MED LIST changes: +Midazolam 1 MG/ML 2 ML SDV ONE; +Propofol 200 MG/20 ML SDV ONE; -cefOXitin 2 GM Vial ONE; +fentaNYL 100 MCG/2 ML SDV ONE
[2020-04-30] MEDS ORDERED: Lactated Ringers 1,000 ML IV ONE (08:00)
[2020-04-30] MEDS ORDERED: Glycopyrrolate 0.2 MG/ML 2 ML SDV IVPUSH ONE (08:30)
[2020-04-30] MEDS ORDERED: Cyanocobalamin (Vitamin B12) 1,000 MCG/ML SDV IM ONE (08:30)
[2020-04-30] MEDS ORDERED: MVI, Adult with Vitamin K 10 ML, Thiamine 200 MG, Zinc/Copper/Manganese/Selenium 1 ML i... IV ONE ×4 (09:00)
--- NOTE | 2020-05-10 11:44 | OR ---
DATE OF PROCEDURE: 04/30/2020 SURGEON: Ediosn Dai MD PREOPERATIVE DIAGNOSIS: Epigastric retrosternal discomfort status post partial gastrectomy. POSTOPERATIVE DIAGNOSIS: Mild inflammation at esophagogastric junction. OPERATIVE PROCEDURE: Upper gastrointestinal endoscopy with biopsies of gastric pouch for CLOtest ([id number]). ANESTHESIA: IV sedation. INDICATION FOR PROCEDURE: A 69-year-old status post a partial gastrectomy in 2018 for worsening reflux symptoms and poor gastric emptying. She has recently developed some reflux- type symptoms. She has been on Protonix 40 mg a day for the last 3 days and already is noticing decreasing symptoms. The plan is to proceed with upper endoscopy with biopsies as indicated. Potential risks including bleeding and perforation were discussed and the patient wishes to proceed. DETAILS OF PROCEDURE: The patient was taken to the operating room and placed in a left lateral decubitus position. IV sedation was administered after which the upper GI endoscope was passed orally through the length of the esophagus, into the gastric pouch, and from there through the gastrojejunostomy. There were no areas of significant stenosis. The only abnormality noted was some very mild redness and friability of the area around the esophagogastric junction consistent with some probable reflux. There was no bleeding or ulceration. Biopsies were obtained from the gastric pouch and sent for CLOtest for H. pylori. Minimal bleeding from the biopsy sites was seen and the procedure then concluded. It appeared at this point, the Protonix will be effective in terms of controlling the symptoms. The patient will be scheduled to follow up with Ashly Thompson in June. At that point if the symptoms remain adequately controlled, one might try de-escalating the treatment, perhaps going to every other day with the Protonix or switching to H2 giovani such as Pepcid. Edison Dai MD /[id number]
== END 2020-04-30 12:00 | disposition home or self-care (01) ==
LOC: JP.SDS 07:39
PROVIDERS: ATTEND Surgery
DX: K20.90 Esophagitis, unspecified without bleeding (principal); I10 Essential (primary) hypertension; Z88.8 Allergy status to other drugs, medicaments and biological substances; Z98.890 Other specified postprocedural states; Z87.19 Personal history of other diseases of the digestive system
CPT/HCPCS: 43239; 87081; J2250; J2704; J3010; J3411; J3420; J3490; J7120

== ENCOUNTER 2020-09-22 08:54 | Emergency (ER) | payer MEDICARE, OTHER ==
--- NOTE | 2020-09-22 12:09 | EDM.PDOC ---
ED HPI GENERAL MEDICAL PROBLEM - General Chief Complaint: Gastrointestinal Problem Stated Complaint: BLOOD IN STOOL AND WEAK Time Seen by Provider: 09/22/20 11:50 Source of Information: Reports: Patient, Old Records, RN History Limitations: Reports: No Limitations - History of Present Illness INITIAL COMMENTS - FREE TEXT/NARRATIVE: 69 yo female presents with recent onset of crampy RLQ pain associated with lack of a recent BM. No nausea, vomiting or fever. Denies a hx of constipation. Onset: Today Onset Date: 09/22/20 Duration: Hour(s):, Waxing/Waning Location: Reports: Abdomen Quality: Reports: Other (cramps) Severity: Moderate Improves with: Reports: None Worsens with: Reports: Other (?time) Context: Reports: Other (See HPI) Associated Symptoms: Reports: No Other Symptoms Treatments FISHER HAND LINE: Reports: Other (see below) (none) - Related Data Allergies Allergy/AdvReac Type Severity Reaction Status Date / Time valacyclovir HCl Allergy Unknown Cannot Verified 09/22/20 10:41 [From Valtrex] Remember Home Meds: Home Meds Levothyroxine [Synthroid] 50 mcg PO DAILY 10/28/15 [History] Ascorbic Acid 500 mg PO DAILY 07/31/19 [History] Calcium Citrate/Vitamin D3 [Calcium Citrate + D] 2 each PO BID 07/31/19 [History] Cyanocobalamin (Vitamin B-12) [Vitamin B-12] 1,000 mcg SL DAILY 07/31/19 [History] Iron,Carbonyl/Ascorbic Acid [Vitron-C Tablet] 1 each PO DAILY 07/31/19 [History] Multivitamin [Multi-Vitamin Daily] 1 each PO DAILY 07/31/19 [History] Papaya [Papaya Enzyme] 1 each PO DAILY 07/31/19 [History] Potassium Gluconate 99 mg PO DAILY 07/31/19 [History] Vitamin B Complex [B Complex] 1 each PO DAILY 07/31/19 [History] Pantoprazole Sodium [Protonix] 40 mg PO DAILY 04/27/20 [History] Acetaminophen/Caffeine [Excedrin Tension Headache] 1 tab PO ASDIRECTED PRN 09/22/20 [History] Past Medical History HEENT History: Reports: Allergic Rhinitis, Impaired Vision Cardiovascular History: Reports: Hypertension Respiratory History: Reports: Asthma Gastrointestinal History: Reports: Colon Polyp, Diverticulosis, GERD, Other (See Below) Other Gastrointestinal History: rectal bleeding, reports stomach was ruptured requiring surg Genitourinary History: Reports: None PHOTOGRAPHIC DOUBLE History: Reports: Dysfunctional Uterine Bleeding, Fibroids, Musculoskeletal History: Reports: Osteoarthritis Neurological History: Reports: Migraines, Vertigo Psychiatric History: Reports: Anxiety, Depression Endocrine/Metabolic History: Reports: Hypothyroidism Hematologic History: Reports: Anemia, Blood Transfusion(s) Dermatologic History: Reports: Eczema - Infectious Disease History Infectious Disease History: Reports: Chicken Pox, Measles, Mumps, Shingles - Past Surgical History HEENT Surgical History: Reports: Naso-Sinus Surgery, Tonsillectomy Cardiovascular Surgical History: Reports: None Respiratory Surgical History: Reports: None GI Surgical History: Reports: Appendectomy, Cholecystectomy, Colonoscopy, EGD, Berenice Fundoplication, Other (See Below) Other GI Surgeries/Procedures: partial gastrectomy in 2017 Female Surgical History: Reports: D&C, Hysterectomy, Oophorectomy Endocrine Surgical History: Reports: None Neurological Surgical History: Reports: None Musculoskeletal Surgical History: Reports: Carpal Tunnel Dermatological Surgical History: Reports: None Social & Family History - Family History Family Medical History: No Pertinent Family History - Tobacco Use Tobacco Use Status *Q: Never Tobacco User - Caffeine Use Caffeine Use: Reports: None - Recreational Drug Use Recreational Drug Use: No ED ROS GENERAL - Review of Systems Review Of Systems: See Below Constitutional: Reports: No Symptoms HEENT: Reports: No Symptoms Respiratory: Reports: No Symptoms Cardiovascular: Reports: No Symptoms GI/Abdominal: Reports: Abdominal Pain (LLQ, crampy), Constipation. Denies: Black Stool, Bloody Stool, Diarrhea, Nausea Musculoskeletal: Reports: No Symptoms Skin: Reports: No Symptoms Neurological: Reports: No Symptoms ED EXAM, GI/ABD - Physical Exam Exam: See Below Exam Limited By: No Limitations General Appearance: Alert, WD/WN, No Apparent Distress Eyes: Bilateral: Normal Appearance Ears: Hearing Grossly Normal Nose: Normal Inspection, No Blood Throat/Mouth: Normal Inspection, Normal Voice, No Airway Compromise Head: Atraumatic, Normocephalic Neck: Normal Inspection Respiratory/Chest: No Respiratory Distress, Lungs Clear, Normal Breath Sounds, No Accessory Muscle Use Cardiovascular: Regular Rate, Rhythm, No Edema GI/Abdominal Exam: Soft, Non-Tender, No Distention Extremities: Normal Inspection Neurological: Alert, Oriented, CN II-XII Intact, Normal Cognition, No Motor/Sensory Deficits Psychiatric: Normal Affect, Normal Mood Course - Vital Signs Last Recorded V/S: Last Vital Signs Temp 36.4 C 09/22/20 10:55 Pulse 64 09/22/20 10:55 Resp 18 09/22/20 10:55 BP 144/64 H 09/22/20 10:55 Pulse Ox 97 09/22/20 10:55 - Orders/Labs/Meds Orders: Active Orders 24 hr Category Date Time Status Enema [RC] ASDIRECTED Care 09/22/20 10:58 Active - Re-Assessments/Exams Free Text/Narrative Re-Assessment/Exam: 09/22/20 12:07 Good relief/results with tap water enema. Departure - Departure Time of Disposition: 12:07 Disposition: Home, Self-Care 01 Condition: Good Clinical Impression: Constipation Qualifiers: Constipation type: slow transit constipation Qualified Code(s): K59.01 - Slow transit constipation - Discharge Information *PRESCRIPTION DRUG MONITORING PROGRAM REVIEWED*: Not Applicable *COPY OF PRESCRIPTION DRUG MONITORING REPORT IN PATIENT ELIANE: Not Applicable Instructions: Constipation, Adult, Ccll-hd-[id number] Referrals: Edison Dai MD [Primary Care Provider] - Additional Instructions: Use as much Miralax as you needed to keep your bowels regular. Follow the directions for how much water to take with this. If problem recurs discuss with your doctor. Sepsis Event Note (ED) - Evaluation Sepsis Screening Result: No Definite Risk - Focused Exam Vital Signs: Vital Signs Temp Pulse Resp BP Pulse Ox 09/22/20 10:55 36.4 C 64 18 144/64 H 97 09/22/20 10:40 36.4 C 64 18 144/64 H 97 - My Orders Last 24 Hours: My Active Orders 09/22/20 10:58 Enema [RC] ASDIRECTED - Assessment/Plan Last 24 Hours: My Active Orders 09/22/20 10:58 Enema [RC] ASDIRECTED
== END 2020-09-22 12:22 | disposition home or self-care (01) ==
LOC: JP.ED 08:54
DX: K59.01 Slow transit constipation (principal); I10 Essential (primary) hypertension; J45.909 Unspecified asthma, uncomplicated; K21.9 Gastro-esophageal reflux disease without esophagitis; E03.9 Hypothyroidism, unspecified; Z79.899 Other long term (current) drug therapy; Z88.8 Allergy status to other drugs, medicaments and biological substances
CPT/HCPCS: 99283